=== PATIENT | male | born 1960 | race Hispanic/Latino ===

== ENCOUNTER 2020-07-13 15:25 | Emergency (ER) | payer BC, OTHER ==
[~2020-07-13] VITALS: Ht 165.1 cm; Wt 117.9 kg
[2020-07-13] MEDS ORDERED: GUAIFENESIN 600MG/DEXTROMETHORPHAN 30MG TABSR PO STA (15:41)
[2020-07-13 17:26] VITALS: BP 142/66
== END 2020-07-13 17:29 | disposition home or self-care (01) ==
LOC: ER 15:35
DX: U07.1 COVID-19 (principal); R06.00 Dyspnea, unspecified; R05 Cough; R53.83 Other fatigue
CPT/HCPCS: 71045; 99284